=== PATIENT | female | born 1950 | race Caucasian/White ===

== ENCOUNTER 2018-05-13 16:53 | Emergency (ER) | payer OTHER ==
[~2018-05-13] VITALS: Ht 157.5 cm; Wt 63.0 kg
[2018-05-13] MEDS ORDERED: ATIVAN1 MG (17:53)
[2018-05-13] MEDS ORDERED: CATAFLAM (17:53)
== END 2018-05-13 22:36 | disposition home or self-care (01) ==
LOC: ER 16:53
DX: R10.32 Left lower quadrant pain (principal); M54.5 Low back pain